=== PATIENT | male | born 1960 | race Hispanic/Latino ===

== ENCOUNTER 2018-01-11 21:11 | Inpatient (IN) | payer BC ==
[2018-01-11 21:11] VITALS: BMI 23.3
[2018-01-11 22:10] LABS: BASO # 0.1 K/uL (0.0-0.2); BASO % 0.7 % (0.0-2.0); EOS % 0.5 % (0.0-4.0); HEMOGLOBIN 13.9 g/dL (12.0-18.0); LYMPH # 2.1 K/uL (1.0-4.3); LYMPH % 21.6 % (20.0-40.0); MEAN CELL VOLUME 90.4 fL (80.0-94.0); MEAN CORPUSCULAR HEMOGLOBIN 31.4 pg (27.0-31.0); MEAN CORPUSCULAR HGB CONC 34.7 g/dL (33.0-37.0); MEAN PLATELET VOLUME 7.9 fL (7.2-11.7); MONO # 0.7 K/uL (0.0-0.8); MONO % 7.4 % (0.0-10.0); NEUT # 6.7 K/uL (1.8-7.0); NEUT % 69.8 % (50.0-75.0); NRBC % 0.1 % (0.0-2.0); RBC 4.44 Mil/uL (4.40-5.90); RED CELL DISTRIBUTION WIDTH 13.4 % (11.5-14.5); WHITE BLOOD COUNT 9.5 K/uL (4.8-10.8)
[2018-01-11 22:20] LABS: SQUAMOUS EPITHIAL < 1 /hpf (0-5); URINE BILIRUBIN NEGATIVE (NEGATIVE); URINE BLOOD NEGATIVE (NEGATIVE); URINE CLARITY Clear (Clear); URINE COLOR Yellow (YELLOW); URINE GLUCOSE (UA) NORMAL (Normal); URINE LEUKOCYTE ESTERASE NEG Leu/uL (Negative); URINE PROTEIN NEGATIVE (NEGATIVE); URINE UROBILINOGEN NORMAL mg/dL (0.2-1.0)
[2018-01-11 22:27] LABS: ACETAMINOPHEN < 10.0 ug/mL (10.0-30.0); SALICYLATE < 1.0 mg/dL 1
[2018-01-11 22:29] LABS: ALB/GLOB RATIO 1.8 (1.0-2.1); ALBUMIN 4.7 g/dL (3.5-5.0); ALT/SGPT 30 U/L (21-72); AST/SGOT 46 U/L (17-59); BLOOD UREA NITROGEN 13 mg/dL (9-20); GFR AFRICAN-AMERICAN > 60; GFR NON-AFRICAN AMERICAN > 60
[2018-01-11 22:34] LABS: BARBITURATES, UR NEGATIVE (NEGATIVE); BENZODIAZEPINES, UR NEGATIVE (NEGATIVE); OPIATES, UR NEGATIVE (NEGATIVE); PHENCYCLIDINE, UR NEGATIVE (NEGATIVE)
--- NOTE | 2018-01-12 00:02 | C.PDOC ---
Time Seen by Provider: 01/11/18 21:28 Chief Complaint (Nursing): Psychiatric Evaluation History Per: Patient Onset/Duration Of Symptoms: Days Current Symptoms Are (Timing): Worse Suicide/Self Injury Attempted (Context): None Modifying Factor(s): None Severity: Moderate Associated Symptoms: Depression, Suicidal Thoughts Additional History Per: Prior Records Past Medical History Reviewed: Historical Data, Nursing Documentation, Vital Signs Vital Signs: Last Vital Signs Temp 98.4 F 01/11/18 21:26 Pulse 90 01/11/18 21:26 Resp 20 01/11/18 21:26 BP 163/98 H 01/11/18 21:26 Pulse Ox 97 01/11/18 21:26 - Medical History PMH: Benign Prostatic Hyperplasia, HTN Surgical History: Coronary Stent - [facility] Procedures ARTHROCENTESIS (04/18/05) CLOSURE SKIN & SUBCUTANEOUS NEC (10/20/02) DILATION OF 1 COR ART WITH 2 DRUG-ELUT, PERC ENDO APPROACH (08/21/16) FLUOROSCOPY OF LEFT HEART USING LOW OSMOLAR CONTRAST (08/21/16) FLUOROSCOPY OF MULT COR ART USING L OSM CONTRAST (08/21/16) MEASURE OF CARDIAC SAMPL & PRESSURE, L HEART, PERC APPROACH (08/21/16) TETANUS TOXOID ADMINIST (10/20/02) Family History: States: Unknown Family Hx - Social History Hx Tobacco Use: Yes Hx Alcohol Use: Yes (BEER) Hx Substance Use: No - Immunization History Hx Tetanus Toxoid Vaccination: No Hx Influenza Vaccination: Yes Hx Pneumococcal Vaccination: No Review Of Systems Except As Marked, All Systems Reviewed And Found Negative. Constitutional: Negative for: Fever, Weakness Cardiovascular: Negative for: Chest Pain Respiratory: Negative for: Shortness of Breath Gastrointestinal: Negative for: Vomiting, Abdominal Pain Musculoskeletal: Negative for: Neck Pain Neurological: Negative for: Weakness, Numbness Physical Exam - Physical Exam Appears: Non-toxic, No Acute Distress Skin: Normal Color, Warm, Dry Head: Atraumatic, Normacephalic Eye(s): bilateral: PERRL, EOMI Neck: Normal ROM, Supple Cardiovascular: Rhythm Regular Respiratory: Normal Breath Sounds, No Accessory Muscle Use Gastrointestinal/Abdominal: Soft, No Tenderness Extremity: Normal ROM, No Tenderness, Other (Abrasion on right knee) Neurological/Psych: Oriented x3, Normal Motor, Normal Sensation ED Course And Treatment - Laboratory Results Result Diagrams: 01/11/18 22:01 01/11/18 22:01 Lab Interpretation: No Acute Changes O2 Sat by Pulse Oximetry: 97 Pulse Ox Interpretation: Normal Progress Note: Pt is medically stable for psych admission. Disposition Counseled Patient/Family Regarding: Studies Performed, Diagnosis, Smoking Cessation - Disposition Disposition: HOSPITALIZED Disposition Time: 00:01 Condition: STABLE - Clinical Impression Clinical Impression: Depression Decision To Admit - Pt Status Changed To: Hospital Disposition Of: Inpatient - Admit Certification Admit to Inpatient:: After my assessment, the patient will require hospitalization for at least two midnights. This is because of the severity of symptoms shown, intensity of services needed, and/or the medical risk in this patient being treated as an outpatient. - InPatient: Physician Admission Certification: I certify that this patient requires 2 or more midnights of care for the following reason:: Psych. - . Bed Request Type: Psychiatry Admitting Physician: Steve Aponte Patient Diagnosis: Depression
[2018-01-12] MEDS ORDERED: Bacitracin 500 Units/gm Oint Foilpak UD TOP ONE (00:03)
--- NOTE | 2018-01-12 01:04 | PCM.BM ---
<Yoni Perales - Last Filed: 01/12/18 01:01> Treatment Plan Problems - Problems identified on initial assessmt DEPRESSION Date Initiated: 01/12/18 Time Initiated: 00:40 Assessment reference: NA Status: Active SUICIDAL IDEATION Date Initiated: 01/12/18 Time Initiated: 00:40 Assessment reference: NA Status: Active Treatment assets and liabiliti Patient Assests: adapts well, cooperative, educated, motivated, self-reliant, ADL independent, good support system, negotiates basic needs, cognitively intact , good interpersonal skills Patient Liabilities: medical problems - Milieu Protocol Maintain good personal hygiene: daily Encourage regular showers, daily Remind patient to perform daily oral care, daily Assist patient to perform ADL's Maintain personal safety: every shift Educate patient to report safety concerns to staff, every shift Monitor environment for contraband/sharps Medication safety: Monitor for expected outcome, potential side effects: every shift, Assess barriers to learning: every shift, Assess readiness for medication education: every shift <Steve Aponte - Last Filed: 01/13/18 11:14> - Diagnosis (1) Depression Status: Acute Interventions: 01/13/18 11:14 * Assess/adjust medications daily and /or as needed * See patient on an individual basis 7x/week to assess symptoms of depression * Monitor for side effects & effectiveness of medications * <Shawnee Rolon - Last Filed: 01/13/18 11:48> Family Contact Family involvement: Famliy/SO not involved - Goals for Treatment Patient goals for treatment: "I need to go to therapy." Discharge/Continuing Care - Education Needs Education Needs: Patient Medication, Patient Coping Skills - Discharge Discharge Criteria: Tolerates medication w/o severe side effects, Reduction of target symptoms Discharge to:: Home - Treatment Team Participation Discussed with Family/SO: No Was Patient/Family/SO present at Treatment Team Meeting: Yes
[2018-01-12 06:26] VITALS: RESP 18
--- NOTE | 2018-01-12 13:52 | PCM.PSYCH ---
Initial Psychiatric Evaluation - Initial Psychiatric Evaluation Type of Admission: Voluntary Legal Status: Capacity Chief Complaint (in patient's own words): "I want to drive off the [employer]." History of Present Illness and Precipitating Events: Patient is a 57 year old male who presented to the ED last night after expressing a plan to commit suicide by driving off of the [employer]. He was seen and evaluated at the bedside. He is talkative and expressive. 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 Pt reports that he has been experiencing a lot of stress in the past year because his ex girlfriend, Blanquita, of 3 years has been stalking him. Patient states that he attempts to tell her to stop but she threatens to kill herself. His last contact with her was this . He is in the process of taking legal action but has been struggling to receive a restraining order. Patient admits to feeling depressed and "without a light at the end of the tunnel". He repeatedly says that he "never knew that evil had a pretty face" and describes how he feels as "ashamed and embarrassed." He denies anxiety or racing thoughts but does say that he has begun smoking much more recently, which he usually does while under a lot of stress. Patient admits to smoking 1 pack of cigarettes a day but denies drugs and drinks beer once a week. Patient denies paranoia, V/H, A/H, or plans to hurt himself or others. He states that every since he has been admitted he's felt much better. There is no past psychiatric history. Past medical history includes diabetes, which he was diagnosed with 20 years ago , and hypertension. Patient suffered an DE in September 2016 when he was again suffering from high stress due to his stalker. 3 stents were placed. Current medications include Metformin 1000 mg, Januvia, Gabapentin, Plavex, Losartan, Rapaflow, vitamin D. Current Medications: Active Medications Generic Name Dose Route Start Last Admin Trade Name Freq PRN Reason Stop Dose Admin Hydroxyzine HCl 25 mg 01/12/18 00:05 Atarax PO Q6 PRN Anxiety Pneumococcal Polyvalent Vaccine 0.5 ml 01/13/18 10:05 Pneumovax 23 Vaccine IM 01/13/18 10:06 .ONCE ONE Trazodone HCl 50 mg 01/12/18 00:06 01/12/18 00:55 Desyrel PO 50 mg HS PRN Administration Insomnia Past Psychiatric History - Past Psychiatric History Previous Treatment History: None History of Abuse: None History of ETOH/Drug Use: None Pertinent Medical Hx (Current Medical&Sleep Prob, Allergies): Allergies Allergy/AdvReac Type Severity Reaction Status Date / Time vancomycin Allergy Severe RASH Verified 01/11/18 21:31 Gabapentin [Gabapentin] 600 mg PO BID 06/09/14 Losartan [Cozaar] 100 mg PO DAILY 06/09/14 Metformin Hydrochloride [Metformin] 1,000 mg PO BID 06/09/14 Silodosin [Rapaflo] 8 mg PO DAILY 06/09/14 Aspirin [Ecotrin] 81 mg PO DAILY #30 tabec 08/26/16 Clopidogrel [Plavix] 75 mg PO DAILY #30 tab 08/26/16 Rosuvastatin Calcium [Crestor] 20 mg PO HS #30 tab 08/26/16 Review of Systems - Review of Systems All systems: reviewed and no additional remarkable complaints except - Psychiatric Psychiatric: Anxiety, Depression, Suicidal Ideation. absent: Abnormal Sleep Pattern, Anhedonia, Auditory Hallucinations, Change in Appetite, Hallucinations , Paranoia, Visual Hallucinations, Tactile Hallucinations Mental Status Examination - Personal Presentation Personal Presentation: Looks stated age - Affect Affect: Broad, Constricted - Motor Activity Motor Activity: Calm - Reliability in Providing Information Reliability in Providing Information: Good - Speech Speech: Organized, Tangential - Mood Mood: Depressed, Anxious - Formal Thought Process Formal Thought Process: No Impairment - Obsessions/Compulsions Obsessions: No Compulsions: No - Cognitive Functions Orientation: Person, Place, Situation, Time Sensorium: Alert Attention/Concentration: Attentive Abstract Thinking: [place] Estimate of Intelligence: Below average Judgement: Imparied, as evidence by: Poor judgement, Imparied, as evidence by: Lack of insight into illness - Risk Risk: Suicidal, Diminished functioning - Strength & Assets Inventory Strength & Assets Inventory: Intelligence, Family support, Interests/hobbies DSM 5 DX - DSM 5 DSM 5 Diagnosis: Major depressive disorder single episode severe without psychotic features - Recommended/Plan of Treatment Treatment Recommendations and Plan of Treatment: Major depressive disorder single episode severe without psychotic features CBT Psychoeducation Supportive therapy, group therapy Remeron 15 mg PO QHS Trazodone 50 mg by mouth daily at bedtime Atarax 25 mg po Q56 hr prn HTN Continue prescribed meds Monitor signs and symptoms DM Continue prescribed meds Monitor signs and symptoms - Smoking Cessation Smoking Cessation Initiated: No
[2018-01-13] MEDS ORDERED: Pneumococcal 23-Valent Vaccine IM ONE (10:05)
--- NOTE | 2018-01-13 11:15 | PCM.PYCHPN ---
Psychiatric Progress Note - Psychiatric Progress Note Patient seen today, length of contact: 15 minutes Patient Chief Complaint: "[place] to drive [place]." Problems Identified/Issues Discussed: Pt was seen and evaluated, chart reviewed and discussed with nurse. Pt reports to feeling no anxiety or depressed mood today as he "just needed to get away for a little bit." He continues to report elaborate stories and is very expressive with facial and hand motions. He was given trazodone before bed and slept for 11 hours which he says he has not done in years. Pt reports some drowsiness upon waking but otherwise no complaints. He asks to be discharged tomorrow with a letter documenting his hospital stay that he can give to his boss. Medication Change: No Medical Record Reviewed: Yes Mental Status Examination - Cognitive Function Orientation: Person, Place, Situation, Time Memory: Intact Attention: WNL Concentration: WNL Association: [facility] Fund of Knowledge: [facility] Decription of patient's judgement and insights: Pt insights do not line up. - Mood Mood: Anxious, Euphoric - Affect Affect: Broad, Constricted - Speech Speech: Pressured - Formal Thought Process Formal Thought Process: Flight of ideas - Suicidal Ideation Suicidal Ideation: Yes - Homicidal Ideation Homicidal Ideation: No Goal/Treatment Plan - Goal/Treatment Plan Progress Toward Problem(s) and Goals/Treatment Plan: Major depressive disorder single episode severe without psychotic features CBT Psychoeducation Supportive therapy, group therapy Remeron 15 mg PO QHS Trazodone 50 mg by mouth daily at bedtime Atarax 25 mg po Q56 hr prn HTN Continue prescribed meds Monitor signs and symptoms DM Continue prescribed meds Monitor signs and symptoms
[2018-01-14 06:39] VITALS: BP 149/73; PULSE 54; TEMP 97.5; O2SAT 100
--- NOTE | 2018-01-14 12:03 | PCM.PYCHDC ---
Mental Status Examination - Mental Status Examination Orientation: Person, Place, Situation, Time Memory: Intact Mood: Neutral Affect: Constricted Speech: Soft Attention: WNL Concentration: WNL Association: WNL Fund of Knowledge: WNL Formal Thought Process: No Impairment Description of patient's judgement and insight: good, fair Psychotic Thoughts and Behaviors: denies any AVH Suicidal Ideation: No Current Homicidal Ideation?: No Discharge Summary - Discharge Note Reason for Hospitalization: Patient is a 57 year old male who presented to the ED last night after expressing a plan to commit suicide by driving off of the [employer]. He was seen and evaluated at the bedside. He is talkative and expressive. 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 Pt reports that he has been experiencing a lot of stress in the past year because his ex girlfriend, Blanquita, of 3 years has been stalking him. Patient states that he attempts to tell her to stop but she threatens to kill herself. His last contact with her was this . He is in the process of taking legal action but has been struggling to receive a restraining order. Patient admits to feeling depressed and "without a light at the end of the tunnel". He repeatedly says that he "never knew that evil had a pretty face" and describes how he feels as "ashamed and embarrassed." He denies anxiety or racing thoughts but does say that he has begun smoking much more recently, which he usually does while under a lot of stress. Patient admits to smoking 1 pack of cigarettes a day but denies drugs and drinks beer once a week. Patient denies paranoia, V/H, A/H, or plans to hurt himself or others. He states that every since he has been admitted he's felt much better. There is no past psychiatric history. Past medical history includes diabetes, which he was diagnosed with 20 years ago , and hypertension. Patient suffered an [place] in September 2016 when he was again suffering from high stress due to his stalker. 3 stents were placed. Current medications include Metformin 1000 mg, Januvia, Gabapentin, Plavex, Losartan, Rapaflow, vitamin D. Laboratory Data: Abnormal Lab Results 01/13/18 01/13/18 01/14/18 12:50 16:36 07:21 POC Glucose (mg/dL) 232 H 193 H 181 H Consultations:: List each consultation separately and include: 1. Reason for request. 2. Findings. 3. Follow-up Summary of Hospital Course include:: 1. Description of specific treatment plan utilized for patients during their course of treatmen. 2. Summarize the time- course for resolution of acute symptoms and/or regressed behaviors. 3. Describe issues identified and worked on during hospitalization. 4. Describe medication utilized. 5. Describe medical problems identified and treated. 6. Reassessment of suicide risk Summary of Hospital Course: Patient is a 57 year old male who presented to the ED last night after expressing a plan to commit [place]. He was seen and evaluated at the bedside. He is talkative and expressive. 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 Pt reports that he has been experiencing a lot of stress in the past year because his ex girlfriend, Blanquita, of 3 years has been stalking him. Patient states that he attempts to tell her to stop but she threatens to kill herself. His last contact with her was this . He is in the process of taking legal action but has been struggling to receive a restraining order. Patient admits to feeling depressed and "without a light at the end of the tunnel". He repeatedly says that he "never knew that evil had a pretty face" and describes how he feels as "ashamed and embarrassed." He denies anxiety or racing thoughts but does say that he has begun smoking much more recently, which he usually does while under a lot of stress. Patient admits to smoking 1 pack of cigarettes a day but denies drugs and drinks beer once a week. Patient denies paranoia, V/H, A/H, or plans to hurt himself or others. He states that every since he has been admitted he's felt much better. There is no past psychiatric history. Past medical history includes diabetes, which he was diagnosed with 20 years ago , and hypertension. Patient suffered an AZ in September 2016 when he was again suffering from high stress due to his stalker. 3 stents were placed. Current medications include Metformin 1000 mg, Januvia, Gabapentin, Plavex, Losartan, Rapaflow, vitamin D. - Diagnosis (1) Depression Current Visit: Yes Status: Acute - Final Diagnosis (DSM 5) Condition upon Discharge: STABLE DSM 5: Major depressive disorder single episode severe without psychotic features Disposition: HOME/ ROUTINE Follow-up Treatment Plan: Major depressive disorder single episode severe without psychotic features CBT Psychoeducation Supportive therapy, group therapy Remeron 15 mg PO QHS Trazodone 50 mg by mouth daily at bedtime Atarax 25 mg po Q56 hr prn HTN Continue prescribed meds Monitor signs and symptoms DM Continue prescribed meds Monitor signs and symptoms Prescriptions/Medication Reconciliation: Mirtazapine [Remeron] 15 mg PO HS #30 tab
== END 2018-01-14 12:30 | disposition home or self-care (01) | DRG 885 ==
LOC: C.ER 21:11 → C.5E 01-12 00:02
PROVIDERS: ADMIT Psychiatry & Neurology Psychiatry; ATTEND Psychiatry & Neurology Psychiatry
PROC: GZ3ZZZZ Medication Management (ICD-10-PCS; principal; 2018-01-12)
PROC: GZHZZZZ Group Psychotherapy (ICD-10-PCS; 2018-01-12)
PROC: HZ59ZZZ Individual Psychotherapy for Substance Abuse Treatment, Supportive (ICD-10-PCS; 2018-01-12)
DX: F32.2 Major depressive disorder, single episode, severe without psychotic features (principal); R45.851 Suicidal ideations; F17.210 Nicotine dependence, cigarettes, uncomplicated; E11.9 Type 2 diabetes mellitus without complications; I10 Essential (primary) hypertension; N40.0 Benign prostatic hyperplasia without lower urinary tract symptoms; I25.2 Old myocardial infarction; Z79.84 Long term (current) use of oral hypoglycemic drugs; Z95.5 Presence of coronary angioplasty implant and graft

== ENCOUNTER 2018-06-14 08:48 | Emergency (ER) | payer BC ==
[2018-06-14 08:49] VITALS: BMI 23.3
[2018-06-14 08:58] VITALS: O2SAT 100
--- NOTE | 2018-06-14 10:15 | C.PDOC ---
History Of Present Illness 57 years old male presents to ED for complaints of back of neck pain that began 2 days ago s/p falling down the stairs. Denies LOC, head injury, dizziness, nausea, or vomiting. Time Seen by Provider: 06/14/18 08:59 Chief Complaint (Nursing): Back Pain History Per: Patient History/Exam Limitations: no limitations Onset/Duration Of Symptoms: Hrs Current Symptoms Are (Timing): Still Present Previous Symptoms: None Associated Symptoms: None Exacerbating Factor(s): Nothing Recent travel outside of the [place]: No Past Medical History Reviewed: Historical Data, Nursing Documentation, Vital Signs Vital Signs: Last Vital Signs Temp 98.2 F 06/14/18 08:53 Pulse 78 06/14/18 08:53 Resp 17 06/14/18 08:53 BP 138/86 06/14/18 08:53 Pulse Ox 100 06/14/18 08:53 - Medical History PMH: Benign Prostatic Hyperplasia, Depression, HTN Surgical History: Coronary Stent - [facility] Procedures ARTHROCENTESIS (04/18/05) CLOSURE SKIN & SUBCUTANEOUS NEC (10/20/02) DILATION OF 1 COR ART WITH 2 DRUG-ELUT, PERC ENDO APPROACH (08/21/16) FLUOROSCOPY OF LEFT HEART USING LOW OSMOLAR CONTRAST (08/21/16) FLUOROSCOPY OF MULT COR ART USING L OSM CONTRAST (08/21/16) GROUP PSYCHOTHERAPY (01/12/18) INDIV PSYCHOTHERAPY FOR SUBSTANCE ABUSE TREATMENT, SUPPORT (01/12/18) MEASURE OF CARDIAC SAMPL & PRESSURE, L HEART, PERC APPROACH (08/21/16) MEDICATION MANAGEMENT (01/12/18) TETANUS TOXOID ADMINIST (10/20/02) Family History: States: Unknown Family Hx - Social History Hx Tobacco Use: Yes Hx Alcohol Use: Yes Hx Substance Use: No - Immunization History Hx Tetanus Toxoid Vaccination: No Hx Influenza Vaccination: Yes Hx Pneumococcal Vaccination: No Review Of Systems Constitutional: Negative for: Fever, Chills Gastrointestinal: Negative for: Nausea, Vomiting, Diarrhea Musculoskeletal: Positive for: Neck Pain Skin: Negative for: Rash Neurological: Negative for: Weakness, Numbness, Headache, Dizziness Physical Exam - Physical Exam Appears: Non-toxic, No Acute Distress, Other (Comfortable ) Skin: Normal Color, Warm, Dry, No Rash Head: Atraumatic, Normacephalic Eye(s): bilateral: Normal Inspection, PERRL, EOMI Oral Mucosa: Moist Neck: Normal ROM, Supple, Other (Abrasion of posterior neck around C5 level with mild tenderness. ) Chest: Symmetrical, No Tenderness Cardiovascular: Rhythm Regular Respiratory: Normal Breath Sounds, No Rales, No Rhonchi, No Wheezing Gastrointestinal/Abdominal: Soft, No Tenderness Back: Normal Inspection, No CVA Tenderness, No Other (Mid line tenderness ) Extremity: Normal ROM Extremity: Bilateral: Atraumatic, Normal Color And Temperature, Normal ROM Pulses: Left Radial: Normal, Right Radial: Normal Neurological/Psych: Oriented x3, Normal Speech Gait: Steady (Ambulating normally) ED Course And Treatment O2 Sat by Pulse Oximetry: 100 (RA) Pulse Ox Interpretation: Normal - Other Rad Cervical Spine X-Ray X-Ray: Viewed By Me, Read By Radiologist Interpretation: Date of service: 06/14/2018. PROCEDURE: Cervical Spine Radiographs. HISTORY: Pain. COMPARISON: Not available. FINDINGS: BONES: The vertebral bodies are maintained in height. There is grade 1 retrolisthesis at C5-6. Normal alignment is maintained elsewhere. The atlantoaxial articulation and odontoid process are preserved. DISC SPACES: There is narrowing of the C5- 6 and C6-7 intervertebral disc spaces consistent with degenerative disc disease. The remaining disc spaces are maintained in height. SOFT TISSUES: Normal. No prevertebral soft tissue swelling. OTHER FINDINGS: None. IMPRESSION: No acute fracture. Grade 1 retrolisthesis C5-6, likely degenerative in origin. Degenerative disc disease C5-6 and C6-7. Otherwise unremarkable. Progress Note: Ordered Cervical Spine X-Ray Disposition Counseled Patient/Family Regarding: Studies Performed, Diagnosis, Need For Followup, Rx Given - Disposition Referrals: Antonio Soria MD [Staff Provider] - Disposition: HOME/ ROUTINE Disposition Time: 10:15 Condition: STABLE Additional Instructions: FOLLOW UP WITH YOUR DOCTOR/CLINIC IN 1-2 DAYS USE MEDICATIONS NEEDED RETURN TO ER IF SYMPTOMS WORSEN Prescriptions: Cyclobenzaprine [Flexeril] 10 mg PO BID PRN #15 tab PRN Reason: Muscle Spasm Naproxen 375 mg PO BID PRN #20 tablet PRN Reason: pain Instructions: Neck Sprain (DC) Forms: [employer] (Montenegrin) Print Language: LEBANESE - Clinical Impression Clinical Impression: Acute cervical sprain - Scribe Statement The provider has reviewed the documentation as recorded by the Ramana Han All medical record entries made by the Ramana were at my direction and personally dictated by me. I have reviewed the chart and agree that the record accurately reflects my personal performance of the history, physical exam, medical decision making, and the department course for this patient. I have also personally directed, reviewed, and agree with the discharge instructions and disposition.
--- NOTE | 2018-06-14 10:21 | RAD ---
Date of service: 06/14/2018 PROCEDURE: Cervical Spine Radiographs. HISTORY: Pain. COMPARISON: Not available FINDINGS: BONES: The vertebral bodies are maintained in height. There is grade 1 retrolisthesis at C5-6. Normal alignment is maintained elsewhere. The atlantoaxial articulation and odontoid process are preserved. DISC SPACES: There is narrowing of the C5-6 and C6-7 intervertebral disc spaces consistent with degenerative disc disease. The remaining disc spaces are maintained in height. SOFT TISSUES: Normal. No prevertebral soft tissue swelling. OTHER FINDINGS: None. IMPRESSION: No acute fracture. Grade 1 retrolisthesis C5-6, likely degenerative in origin. Degenerative disc disease C5-6 and C6-7. Otherwise unremarkable.
[2018-06-14 10:38] VITALS: BP 133/77; PULSE 64; RESP 18; TEMP 98.4
== END 2018-06-14 10:35 | disposition home or self-care (01) ==
LOC: C.ER 08:48
DX: S13.4XXA Sprain of ligaments of cervical spine, initial encounter (principal); W10.9XXA Fall (on) (from) unspecified stairs and steps, initial encounter